=== PATIENT | female | born 1955 | race Two or more races ===

== ENCOUNTER 2022-08-15 17:36 | Emergency (ER) | payer OTHER ==
[~2022-08-15] VITALS: Ht 167.6 cm; Wt 87.5 kg
[2022-08-15] MEDS ORDERED: SYNTHROID50 MCG (17:50)
[2022-08-15] MEDS ORDERED: HYZAAR 100-251 EACH (17:50)
== END 2022-08-15 20:55 | disposition home or self-care (01) ==
LOC: ER 17:36
DX: I10 Essential (primary) hypertension (principal); G44.89 Other headache syndrome